=== PATIENT | male | born 1955 | race Caucasian/White ===

== ENCOUNTER 2019-12-01 10:07 | Day surgery (SDC) | payer MEDICARE, OTHER ==
[~2019-12-01 10:07] MED LIST: CELECOXIB 100 MG CAPSULE PO ONE; FAMOTIDINE 20MG TABLET PO ONE; GENTAMICIN SULFATE IV ONE; MECLIZINE 25 MG TABLET PO ONE; METOCLOPRAMIDE 10 MG TABLET PO ONE; SODIUM CHLORIDE 0.9% IV ONE; VANCOMYCIN 1GM/200ML PREMIX 1 GM/200 ML PIGGYBACK IVPB ONE
[2019-12-01] MEDS ORDERED: LIDOCAINE 2% MDV (20MG/ML) 20ML VIAL IV ONE (10:08)
[2019-12-01] MEDS ORDERED: MIDAZOLAM HCL 2MG/2ML VIAL IV ONE (10:08)
[2019-12-01] MEDS ORDERED: ROPIVACAINE HCL (NAROPIN) /PF 5MG/ML 20ML VIAL IV ONE (10:08)
[2019-12-01] MEDS ORDERED: DEXAMETHASONE 4 MG/ML 1ML VIAL IVP ONE (10:08)
[2019-12-01] MEDS ORDERED: FENTANYL PF 100MCG/2ML VIAL IV ONE (10:08)
[2019-12-01] MEDS ORDERED: PROPOFOL 10 MG/ML VIAL IV ONE (10:08)
[2019-12-01] MEDS ORDERED: RINGERS SOLUTION,LACTATED 1,000 ML IV ONE ×3 (11:08→13:45)
[2019-12-01 11:29] LABS: ABO GROUP A; ANTIBODY SCREEN NEGATIVE (NEGATIVE); RH TYPE POSITIVE
[2019-12-01] MEDS ORDERED: BUPIVACAINE 0.5% W/EPI MPF 30 ML VIAL SQ ONE (13:03)
[2019-12-01] MEDS ORDERED: TRANEXAMIC ACID 1,000 MG/10 ML ML IV ONE (13:03)
[2019-12-01] MEDS ORDERED: TRANEXAMIC ACID 1,000 MG/10 ML ML IU ONE (13:03)
[2019-12-01] MEDS ORDERED: KETOROLAC 30 MG/ML VIAL IVP PRN (13:54)
[2019-12-01] MEDS ORDERED: HYDROMORPHONE HCL 2 MG/ML VIAL IM PRN (13:54)
[2019-12-01] MEDS ORDERED: ACETAMINOPHEN 325 MG TAB PO PRN (13:54)
[2019-12-01] MEDS ORDERED: TRAMADOL HCL 50 MG TABLET PO PRN (13:54)
[2019-12-01] MEDS ORDERED: BISACODYL 10 MG SUPP RC PRN (13:54)
[2019-12-01] MEDS ORDERED: HYDROCODONE/APAP 10/325 TABLET PO PRN ×2 (13:54)
[2019-12-01] MEDS ORDERED: MAGNESIUM HYDROXIDE 30 ML UDC PO PRN (13:54)
[2019-12-01] MEDS ORDERED: ONDANSETRON HCL IV 4 MG/2 ML VIAL IVP PRN (13:54)
[2019-12-01] MEDS ORDERED: ACETAMINOPHEN W/ CODEINE 300MG/60MG TABLET PO PRN ×2 (13:54)
[2019-12-01] MEDS ORDERED: DIPHENHYDRAMINE HCL 25 MG CAPSULE PO PRN (13:54)
[2019-12-01] MEDS ORDERED: AL HYDROX/MAG HYDROX 30ML UD PO PRN (13:54)
[2019-12-01] MEDS ORDERED: ZOLPIDEM TARTRATE 5 MG TABLET PO PRN (13:54)
[2019-12-01] MEDS ORDERED: NALOXONE 0.4 MG/1 ML VIAL IVP PRN (13:54)
[2019-12-01] MEDS ORDERED: LOSARTAN POTASSIUM 25 MG TABLET PO SCH (16:00)
--- NOTE | 2019-12-01 16:42 | Rehab Evaluation ---
Patient Information - Patient Information Diagnosis: L knee DJD Ordered Treatment: PT Evaluate and Treat Status: Initial Evaluation Surgery: Yes (L TKA) Date of Surgery: 12/01/19 Past Medical/Surgical Hx: PAST MEDICAL/SURGICAL HISTORY Past Surgical History LEFT KNEE SCOPES RIGHT KNEE SCOPE RIGHT ELBOW SX C SCOPES PMH - Respiratory Hx Respiratory Disorders Yes Comment: ALLERGIES PMH - Cardiovascular Hx Cardiovascular Disorders Yes Hx Abnormal EKG Yes Hx Cardiac Catheterization Yes Hx Heart Attack No Hx Hypertension Yes: FAIR CONTROL ON MEDS Hx Coronary Artery Disease Yes Hx Coronary Stent Yes: 2008 X'S 1 Exercise Tolerance Good Comment: HYPERLIPIDEMIA PMH - Neuro Hx Neurological Disorders No PMH - GI Hx Gastrointestinal Disorders Yes PMH - Hx Genitourinary Disorders No PMH - Endocrine Hx Endocrine Disorders No Hx Diabetes No Hx Thyroid Disease No PMH - Musculoskeletal Hx Musculoskeletal Disorders Yes Hx Arthritis Yes: LEFT KNEE PMH - Psych Hx Psychiatric Problems Yes Hx Anxiety Yes: R/T SURGERY PMH - Hematology/Oncology Hx Hematology/Oncology No Disorders Premorbid Status: Detail (The patient was independent with all mobility prior to surgery.) Social History: Detail (The patient lives with spouse in a quad level house with 6 steps at the enterance and between levels with one hand rail. The bathroom is equipped with : a walk in shower, shower bench and standard height toilet. There are no grab bars in the bathroom. The patient has a front wheeled walker and standard cane.) Precautions: Burchard, Fall, Other (WBAT L LE) - Time With Patient Total Time Spent With Patient (Min): 20 Treatment Procedures: Detail (Initial Evaluation low complexity) Subjective Information - Subjective Information Per Patient (The patient had complaints of abdominal pain ( due to need to urinate and inability to do so). The patient had minimal complaints of knee pain. Th) Objective Data - Mental Status Patient Orientation: Oriented x3 - Visual Perception Appears within normal limits for therapeutic activities - ROM Not within normal limits (The patient's L knee AROM was limited s/p surgery. All other AROM was WNL.) - Strength/Tone Not within normal limits (The patient's LE strength was not tested s/p surgery however was functional.) - Bed Mobility Independent (The patient was independent with sit to supine transfer and scooting up in bed.) - Transfers Independent (The patient was independent with sit to and from stand transfer with verbal cues to push up from and reach back for surface.) - Balance Balance Sitting: Good Balance Standing: Good - Gait Detail (The patient ambulated with front wheeled walker a distance of 150 feet WBAT on the L LE with assistance with equipment only.) Therapy Assessment - Therapy Assessment Detail (The patient was independent with bed mobility and transfers and ambulation on levels. Will see pt. for 1-2 visits to meet inpt. PT goals.) Problem List - Problem List Physical Therapy Problem List: Detail (Decreased L knee AROM and L LE strength.) Goals - Goals Physical Therapy Goals: 1) The patient will be independent with TKA HEP. 2) The patient will ambulate on a flight of stairs with supervision for safety using proper technique. Prognosis - Prognosis Good Plan - Plan Physical Therapy Plan: PT 1-2 sessions for gait training on stairs and instruction in HEP.
[2019-12-01] MEDS: POTASSIUM CHLORIDE/D5-0.9%NACL 20 MEQ/1,000 ML BAG IV SCH (18:25)
[2019-12-01] MEDS ORDERED: MULTIVITAMINS/MINERALS TABLET PO SCH (22:00)
[2019-12-01] MEDS ORDERED: ASPIRIN 81 MG TABEC PO SCH (22:00)
[2019-12-01] MEDS ORDERED: ATORVASTATIN 20 MG TABLET PO SCH (22:00)
[2019-12-01] MEDS: DOCUSATE SODIUM 100 MG CAPSULE PO SCH (22:44)
[2019-12-01] MEDS: VANCOMYCIN 1GM/200ML PREMIX 1 GM/200 ML PIGGYBACK IVPB SCH (22:45)
[2019-12-02] MEDS: POTASSIUM CHLORIDE/D5-0.9%NACL 20 MEQ/1,000 ML BAG IV SCH ×3 (02:20→13:45)
[2019-12-02 06:53] LABS: HEMOGLOBIN 10.8 gm/dl (14.0-18.0)
[2019-12-02 07:14] LABS: BLOOD UREA NITROGEN 19 mg/dL (8-23); CREATININE 1.1 mg/dL (0.7-1.2); EST GLOMERULAR FILTRATION RATE > 60 mL/min; GLUCOSE,RANDOM 122 mg/dL (74-109)
--- NOTE | 2019-12-02 09:10 | Operative Note ---
DATE OF SURGERY: 12/01/2019 PREOPERATIVE DIAGNOSIS: End-stage arthrosis of the left knee. POSTOPERATIVE DIAGNOSIS: End-stage arthrosis of the left knee. OPERATION: Cemented left total knee arthroplasty using [employer] components with a size 7 Oxinium femur, a size 6 stemmed tibia baseplate, a 9 mm lipped highly crosslinked tibial insert, and a 35 mm all-plastic patella. STAFF SURGEON: Jacky Pruitt MD ANESTHESIA: Spinal. PREPARATION: Chloraprep. INDIVIDUAL CONSIDERATIONS: None. PROCEDURE: The patient was taken to the operating room, placed supine on the operating room table. He had a successful induction of a spinal anesthetic. The left lower extremity was prepped and draped in the usual fashion. The patient midline approach to the knee. The limb was elevated and tourniquet was inflated to 250 mmHg. Sharp dissection carried down through skin and subcutaneous tissue. Small veins were coagulated with a Bovie. A medial arthrotomy was performed. The patella was everted and the knee was flexed. Fat pad was resected, ACL was sacrificed, and provisional anterior meniscectomies were performed. The capsule was released from the medial proximal tibia. The patient had exposed bone at all 3 compartments. The initial femoral harbor pilot hole was then made freehand. The intramedullary femoral cutting jig was placed. It was cut in 7.0 degrees of valgus and adjusted for rotation and secured with pins for a 10 mm resection. The initial transverse cut was then made. The skin guide was placed in 3 degrees of external rotation and the harbor pilot holes were drilled. It was found that a size 7 would be appropriate. The anterior and posterior cuts followed by chamfer cuts were made. Osteophytes removed, and a size 7 trial was placed and found to fit well. The tibia was brought forward, and the remainder of the meniscal remnants removed with a Bovie. The extraarticular tibial cutting jig was placed. It was cut in neutral with a 3-degree AP slope. It was set for a 9 mm resection keyed off the high lateral side and secured with pins. When cutting the tibia, care was taken to preserve the PCL insertion on the tibia. After removing medial osteophytes, I could fit a size 6 baseplate. It was adjusted for rotation and secured with pins. With a 9 mm trial and femoral trial, there was excellent motion and stability. Ligamentous balance and rotation alignment were thought to be normal. Femoral harbor pilot holes were impacted and a tibial keel stamp was impacted, and these trial components were removed. The patient had a thick patella and roughly 9 mm of bone was removed freehand. I could easily fit a 35 patella, and the 3 harbor pilot holes were drilled. The tourniquet was let down briefly to get bleeders posteriorly and then placed back up again. The knee was then thoroughly irrigated out with pulsatile Betadine and saline. Bony surfaces were dried and just prior to cementing, they were dried again with a CarboJet. A size 6 stemmed tibia baseplate was cemented into place followed by impaction of the 9 mm lipped tibial insert followed by cementing in the size 7 Oxinium femoral component followed by cementing in the 35 mm all- plastic patella. The implant surfaces were compressed, excess cement was removed. After the cement had set, there was excellent motion and stability. Ligamentous balance, rotation alignment, and patellofemoral tracking were normal. No lateral release was required. Tourniquet was let down. Hemostasis was obtained with a Bovie. The skin, periosteum, and subcu were infiltrated with 30 mL of 0.5% Marcaine with epinephrine. The capsule was then closed with a running #2 quill, subcu was closed in layers with running 0 quill, skin was closed with running 3-0 quill. The patient did receive 1 g of tranexamic acid preoperatively IV. Then 1 g of tranexamic acid was mixed with 30 mL of saline and injected into the knee through a sterile 18-gauge needle, and a sterile bulky compressive FABY-type dressing was applied. The patient tolerated the procedure well. Needle and sponge counts were correct. Estimated blood loss was minimal, and he was taken back to recovery in good condition. There were no complications. SARBJIT
[2019-12-02] MEDS ORDERED: FERROUS SULFATE 325 MG TAB PO SCH (10:00)
[2019-12-02] MEDS ORDERED: RIVAROXABAN 10 MG TABLET PO SCH (10:00)
--- NOTE | 2019-12-02 10:08 | Physical Therapy Tx Note ---
Physical Therapy Tx Note - Treatment Note Tolerated: Good Total Time Spent With Patient: 25 Physical Therapy Tx Note: Detail (The patient was in bed when PT arrived . The patient complained of L knee pain but did not rate his pain using 0-10 pain scale. The patient ambulated with front wheeled walker WBAT on the L LE a distance of 130 feet x 1 with supervision for safety. The patient ambulated on a flight of 3 and a flight of 7 steps using proper technique and one railing and cane with supervision for safety. The patient completed TKA HEP including: ankle pumps, quad sets, hamstring sets, SLR, seated heel slides, gluteal sets. The patient has met all inpt. PT goals and is discharged from inpt. PT.) Physical Therapy Problem List: Detail (Decreased L knee AROM and L LE strength.) Physical Therapy Goals: 1) The patient will be independent with TKA HEP.(Goal Met). 2) The patient will ambulate on a flight of stairs with supervision for safety using proper technique.(Goal Met) Physical Therapy Plan: The pt. is discharged from inpt. and is to continue with Home PT.
--- NOTE | 2019-12-02 10:30 | Rehab Evaluation ---
Patient Information - Patient Information Diagnosis: L knee DJD Ordered Treatment: OT Evaluate and Treat Status: Initial Evaluation Surgery: Yes (L TKA) Date of Surgery: 12/01/19 Past Medical/Surgical Hx: PAST MEDICAL/SURGICAL HISTORY Past Surgical History LEFT KNEE SCOPES RIGHT KNEE SCOPE RIGHT ELBOW SX C SCOPES PMH - Respiratory Hx Respiratory Disorders Yes Comment: ALLERGIES PMH - Cardiovascular Hx Cardiovascular Disorders Yes Hx Abnormal EKG Yes Hx Cardiac Catheterization Yes Hx Heart Attack No Hx Hypertension Yes: FAIR CONTROL ON MEDS Hx Coronary Artery Disease Yes Hx Coronary Stent Yes: 2008 X'S 1 Exercise Tolerance Good Comment: HYPERLIPIDEMIA PMH - Neuro Hx Neurological Disorders No PMH - GI Hx Gastrointestinal Disorders Yes PMH - Hx Genitourinary Disorders No PMH - Endocrine Hx Endocrine Disorders No Hx Diabetes No Hx Thyroid Disease No PMH - Musculoskeletal Hx Musculoskeletal Disorders Yes Hx Arthritis Yes: LEFT KNEE PMH - Psych Hx Psychiatric Problems Yes Hx Anxiety Yes: R/T SURGERY PMH - Hematology/Oncology Hx Hematology/Oncology No Disorders Premorbid Status: Detail (The patient was independent with all mobility prior to surgery. He and spouse share home mgmt, meal prep and laundry tasks and she will be available to assist after he returns home.) Social History: Detail (The patient lives with spouse in a quad level house with 0 steps at the entrance and 6 steps between levels with one hand rail. The bathroom is equipped with : a walk in shower, shower bench and standard height toilet. There are no grab bars in the bathroom. The patient has a front wheeled walker and standard cane.) Precautions: Rea, Fall, Other (WBAT L LE) - Time With Patient Total Time Spent With Patient (Min): 40 Treatment Procedures: Detail (OT eval low complexity) Subjective Information - Subjective Information Per Patient Objective Data - Pain Pain Present: Yes (12/04) - Mental Status Patient Orientation: Oriented x3 - Visual Perception Appears within normal limits for therapeutic activities - ROM Within normal limits (Raheel UE AROM WNL) - Strength/Tone Within normal limits (Raheel UE strength WNL) - Coordination Appears within normal limits for therapeutic activities - Bed Mobility Independent (Ind with supine to sit and sit to supine) - Transfers Independent (Ind with sit to stand from EOB) - Balance Balance Sitting: Good Balance Standing: Good - Sensation Intact - Gait Detail (Pt ambulating in room with 2 wheeled walker Indly.) - ADL's/IADL's Detail (Pt educated and able to demonstrate learning of modified LE dressing techniques including doffing slipper socks and briefs and donning kusum sock (with assist), underwear, pants, socks and tennis shoes. Reviewed kitchen and shower safety and modifications, pt verbalized understanding.) Therapy Assessment - Therapy Assessment Detail (Pt is Ind with modified LE dressing techniques.) Problem List - Problem List Physical Therapy Problem List: Detail (Decreased L knee AROM and L LE strength.) Occupational Therapy Problem List: Detail (No current IP OT problems identified.) Goals - Goals Physical Therapy Goals: 1) The patient will be independent with TKA HEP.(Goal Met). 2) The patient will ambulate on a flight of stairs with supervision for safety using proper technique.(Goal Met) Occupational Therapy Goals: No current IP OT goals identified. Prognosis - Prognosis Good Plan - Plan Physical Therapy Plan: The pt. is discharged from inpt. and is to continue with Home PT. Occupational Therapy Plan: Pt is discharged from IP OT. Thank you for this referral.
[2019-12-02] MEDS: VANCOMYCIN 1GM/200ML PREMIX 1 GM/200 ML PIGGYBACK IVPB SCH (10:38)
[2019-12-02] MEDS: DOCUSATE SODIUM 100 MG CAPSULE PO SCH (10:38)
== END 2019-12-02 13:50 | disposition home health service (06) ==
LOC: SUR 10:07 → MEDSURG 14:44 → SUR 12-02 16:27
PROVIDERS: ATTEND Orthopaedic Surgery
DX: M17.12 Unilateral primary osteoarthritis, left knee (principal); I10 Essential (primary) hypertension; E78.00 Pure hypercholesterolemia, unspecified; I25.10 Atherosclerotic heart disease of native coronary artery without angina pectoris; Z95.5 Presence of coronary angioplasty implant and graft
CPT/HCPCS: 27447; 01402; 64447; 85018; 85014; 80048; 86900; 86901; 86850; 76942; C1776; J1885; J3010; J3490; J2795; J3370 ×2; J3480; J7120

== ENCOUNTER 2020-01-05 10:37 | Day surgery (SDC) | payer MEDICARE, OTHER ==
[~2020-01-05 10:37] MED LIST changes: +ACETAMINOPHEN 1,000 MG/100 ML BTL IVPB ONE; -CELECOXIB 100 MG CAPSULE PO ONE; -FAMOTIDINE 20MG TABLET PO ONE; -GENTAMICIN SULFATE IV ONE; -MECLIZINE 25 MG TABLET PO ONE; -METOCLOPRAMIDE 10 MG TABLET PO ONE; -SODIUM CHLORIDE 0.9% IV ONE; -VANCOMYCIN 1GM/200ML PREMIX 1 GM/200 ML PIGGYBACK IVPB ONE
[2020-01-05] MEDS ORDERED: KETOROLAC 30 MG/ML VIAL IVP ONE (10:38)
[2020-01-05] MEDS ORDERED: PROPOFOL 10 MG/ML VIAL IV ONE (10:38)
[2020-01-05] MEDS ORDERED: LIDOCAINE 2% MDV (20MG/ML) 20ML VIAL IV ONE (10:38)
[2020-01-05] MEDS ORDERED: FENTANYL PF 100MCG/2ML VIAL IV ONE (10:38)
[2020-01-05] MEDS ORDERED: RINGERS SOLUTION,LACTATED 1,000 ML IV ONE ×2 (11:15→13:23)
[2020-01-05] MEDS ORDERED: METHYLPREDNISOLONE 40MG/VIAL IU ONE (13:16)
[2020-01-05] MEDS ORDERED: BUPIVACAINE 0.75% W/EPI MPF 30ML VIAL IVP ONE (13:16)
[2020-01-05] MEDS ORDERED: FENTANYL PF 100MCG/2ML VIAL IVP ONE (13:39)
[2020-01-05] MEDS ORDERED: HYDROCODONE/APAP 7.5/325MG TABLET PO ONE (14:01)
--- NOTE | 2020-01-08 10:52 | Operative Note ---
DATE OF SURGERY: 01/05/2020 PREOPERATIVE DIAGNOSIS: Arthrofibrosis of the left knee. POSTOPERATIVE DIAGNOSIS: Arthrofibrosis of the left knee. OPERATION: 1. Left knee manipulation under anesthesia. 2. Left knee injection. STAFF SURGEON: aJcky Pruitt MD ANESTHESIA: General. PREPARATION: Chloraprep. INDIVIDUAL CONSIDERATIONS: None. PROCEDURE: The patient was taken to the operating suite and had a successful induction of general anesthesia. I manipulated his knee, got him into full extension, and then at about 95 degrees I felt resistance and was able to push him into about 130-135 degrees of flexion. I then prepped him superomedially with a ChloraPrep and then injected him sterilely with 20 mL of 0.5% Marcaine with epinephrine mixed with 40 mg of Depo-Medrol and placed a Band-Aid. He was taken back to recovery in good condition. There were no complications. SARBJIT
== END 2020-01-05 14:26 | disposition home or self-care (01) ==
LOC: SUR 10:37
PROVIDERS: ATTEND Orthopaedic Surgery
DX: M24.662 Ankylosis, left knee (principal); I10 Essential (primary) hypertension; E78.00 Pure hypercholesterolemia, unspecified; I25.10 Atherosclerotic heart disease of native coronary artery without angina pectoris
CPT/HCPCS: 27570; 20610; 01380; J1885; J3010; J1030; J7120

== ENCOUNTER → 2020-01-26 | Day surgery (SDC) | payer MEDICARE, OTHER ==
[~2020-01-26] MED LIST changes: +BUPIVACAINE 0.5% W/EPI MPF 30 ML VIAL IU ONE; +BUPIVACAINE 0.75% W/EPI MPF 30ML VIAL IM ONE; +FENTANYL PF 100MCG/2ML VIAL IV ONE; +HYDROCODONE/APAP 7.5/325MG TABLET PO ONE; +LIDOCAINE 2% MDV (20MG/ML) 20ML VIAL IV ONE; +PROPOFOL 10 MG/ML VIAL IV ONE
--- NOTE | 2020-01-26 17:50 | Operative Note ---
DATE OF SURGERY: 01/26/2020 PREOPERATIVE DIAGNOSIS: Arthrofibrosis of the left knee. POSTOPERATIVE DIAGNOSIS: Arthrofibrosis of the left knee. OPERATION: 1. Left knee manipulation under anesthesia. 2. Left knee injection. STAFF SURGEON: Jacky Pruitt MD ANESTHESIA: Chloraprep. INDIVIDUAL CONSIDERATIONS: None. PROCEDURE: The patient was taken to the operating room, had a successful induction of a general anesthetic. I went ahead and manipulated his knee into full extension. I felt resistance at 90 degrees and I got him to about 130. I then prepped superolaterally with the ChloraPrep and injected his knee with 20 mL of 0.5% Marcaine with epinephrine. A sterile dressing bandage was applied. He was taken back to recovery in good condition. There were no complications. SARBJIT
== END | disposition home or self-care (01) ==
LOC: SUR 10:44
PROVIDERS: ATTEND Orthopaedic Surgery
DX: M24.662 Ankylosis, left knee (principal); I10 Essential (primary) hypertension; E78.00 Pure hypercholesterolemia, unspecified; I25.10 Atherosclerotic heart disease of native coronary artery without angina pectoris; Z95.5 Presence of coronary angioplasty implant and graft
CPT/HCPCS: 27570; 20610; 01380; J3010